=== PATIENT | male | born 1985 | race Two or more races ===

== ENCOUNTER 2016-09-08 21:03 | Emergency (ER) | payer OTHER ==
[~2016-09-08] VITALS: Ht 177.8 cm; Wt 83.9 kg
[2016-09-08 21:03] VITALS: BP 109/59
[2016-09-08] MEDS ORDERED: LIDOCAINE 1%-EPI 1:100,000 50 ML VIAL IJ ONE (21:30)
[2016-09-08] MEDS ORDERED: TDAP [DIPH/PERTUSSIS/TET] 0.5 ML VIAL IM ONE ×2 (21:30→22:02)
== END 2016-09-08 22:13 ==
LOC: ER 21:06
DX: S01.01XA Laceration without foreign body of scalp, initial encounter (principal); Y04.0XXA Assault by unarmed brawl or fight, initial encounter; Y93.89 Activity, other specified; Y92.89 Other specified places as the place of occurrence of the external cause; Y99.9 Unspecified external cause status
CPT/HCPCS: 12002; 70450; 90715; 99284; A4606; A6402; J3490; Z7610